=== PATIENT | female | born 1960 | race Native Hawaiian/Other Pacific Islander ===

== ENCOUNTER 2018-02-17 08:10 | Day surgery (SDC) | payer MEDICARE, OTHER ==
[~2018-02-17] VITALS: Ht 165.1 cm; Wt 67.7 kg
[~2018-02-17 08:10] MED LIST: 0.9% SODIUM CHLORIDE 10 ML SYRINGE IVP PRN; ASPI-989 PO; ATOR40TA28 PO; DASA100T PO; FERR-89 PO; FOLI1 PO; INSLAN SQ; INSNOV SQ; ISON100I IM; LIRA0.6P SQ; LISI-662 PO; METF-446 PO; METO25XL PO; METOPROLOL TARTRATE 50 MG TABLET PO PRN; PYRI50 PO; VITAD50000 PO
[2018-02-17 08:47] LABS: ANION GAP 9 mmol/L (8-16); CALCIUM, TOTAL 8.7 mg/dL (8.8-10.5); CARBON DIOXIDE 28 mmol/L (22-29); CHLORIDE 105 mmol/L (98-107); CREATININE 0.65 mg/dL (0.60-1.30); GLOMERULAR FILTR. RATE CALC > 60 mL/min (>60); GLUCOSE,RANDOM 131 mg/dL (70-110); SODIUM SERUM 142 mmol/L (136-145); UREA NITROGEN, BLOOD 15 mg/dL (7-18)
[2018-02-17] MEDS ORDERED: METOPROLOL TARTRATE 50 MG TABLET ONE (08:59)
[2018-02-17] MEDS ORDERED: METOPROLOL TARTRATE 5 MG/5 ML VIAL ONE ×2 (10:31→10:40)
[2018-02-17] MEDS: METOPROLOL TARTRATE 5 MG/5 ML VIAL IVP PRN ×3 (10:34→10:47)
== END 2018-02-17 11:30 | disposition home or self-care (01) ==
LOC: SURGERY 08:10 → EDSTATUS 10:00 → SURGERY 11:30
PROVIDERS: ATTEND Internal Medicine Cardiovascular Disease
DX: R94.39 Abnormal result of other cardiovascular function study (principal); Z53.8 Procedure and treatment not carried out for other reasons; I08.3 Combined rheumatic disorders of mitral, aortic and tricuspid valves; E11.9 Type 2 diabetes mellitus without complications; E78.00 Pure hypercholesterolemia, unspecified; I11.9 Hypertensive heart disease without heart failure; H54.62 Unqualified visual loss, left eye, normal vision right eye; Z86.11 Personal history of tuberculosis; Z85.6 Personal history of leukemia; Z79.4 Long term (current) use of insulin; Z79.84 Long term (current) use of oral hypoglycemic drugs; Z79.82 Long term (current) use of aspirin; Z79.899 Other long term (current) drug therapy; Z98.890 Other specified postprocedural states
CPT/HCPCS: 36415; 80048; 93005; J3490

== ENCOUNTER → 2018-10-06 | Outpatient (CLI) | payer MEDICARE, OTHER ==
[~2018-10-06] VITALS: Ht 167.6 cm; Wt 68.2 kg
[~2018-10-06] MED LIST changes: +METOPROLOL TARTRATE 5 MG/5 ML VIAL IVP ONE; +METOPROLOL TARTRATE 5 MG/5 ML VIAL ONE; +METOPROLOL TARTRATE 50 MG TABLET ONE; +METOPROLOL TARTRATE 50 MG TABLET PO ONE; -METOPROLOL TARTRATE 50 MG TABLET PO PRN
[2018-10-06 07:56] LABS: ANION GAP 8 mmol/L (8-16); CALCIUM, TOTAL 8.5 mg/dL (8.8-10.5); CARBON DIOXIDE 25 mmol/L (22-29); CHLORIDE 107 mmol/L (98-107); GLOMERULAR FILTR. RATE CALC > 60 mL/min (>60); GLUCOSE,RANDOM 129 mg/dL (70-110); POTASSIUM 3.9 mmol/L (3.5-5.1); SODIUM SERUM 140 mmol/L (136-145); UREA NITROGEN, BLOOD 15 mg/dL (7-18)
== END | disposition home or self-care (01) ==
LOC: RADMN 06:59
PROVIDERS: ATTEND Internal Medicine Cardiovascular Disease
DX: I20.8 Other forms of angina pectoris (principal)
CPT/HCPCS: 36415; 80048; 93005; J3490

== ENCOUNTER → 2019-05-11 | Outpatient (CLI) | payer MEDICARE, OTHER ==
[~2019-05-11] MED LIST changes: -0.9% SODIUM CHLORIDE 10 ML SYRINGE IVP PRN; +CHOL500043 PO; -METOPROLOL TARTRATE 5 MG/5 ML VIAL IVP ONE; -METOPROLOL TARTRATE 5 MG/5 ML VIAL ONE; -METOPROLOL TARTRATE 50 MG TABLET ONE; -METOPROLOL TARTRATE 50 MG TABLET PO ONE; -VITAD50000 PO
== END | disposition home or self-care (01) ==
LOC: RADPV 11:20
PROVIDERS: ATTEND Internal Medicine Nephrology
DX: I51.7 Cardiomegaly (principal); N18.1 Chronic kidney disease, stage 1